=== PATIENT | female | born 1990 | race Caucasian/White ===

== ENCOUNTER 2024-12-27 08:27 | Emergency (ER) | payer MEDICAID, SELFPAY ==
[2024-12-27 08:27] VITALS: BP 131/85; PULSE 84; RESP 14; TEMP 36.3; O2SAT 98; BMI 28.9
[2024-12-27 08:37] VITALS: BP 133/84; PULSE 95; RESP 15; O2SAT 99
--- NOTE | 2024-12-27 08:40 | CT_ITS ---
PROCEDURE: ABDOMEN/PELVIS WITHOUT CONT 12/27/2024 REASON FOR EXAM: POSSIBLE ENLARGED LIVER, ONLY 1 KIDNEY Abdominal bloating. TECHNIQUE: Procedure Code: CTABDPEL Modality: CT Procedure: ABDOMEN/PELVIS WITHOUT CONT Noncontrast technique limits evaluation of the abdominal and pelvic viscera. Coronal and Sagittal reconstruction series were provided. One or more dose reduction techniques were used (e.g., Automated exposure control, adjustment of the mA and/or kV according to patient size, use of iterative reconstruction technique). RADIATION DOSE SUMMARY: CTDlvol: 11.16 mGy DLP: 599.37 mGycm COMPARISON: None FINDINGS: Lung bases: Minimal linear atelectasis at the left lung base. Liver: Normal size. No obvious mass. Gallbladder: Unremarkable. Spleen: Borderline splenomegaly. Pancreas: Normal size. No surrounding inflammation. Adrenals: Unremarkable Kidneys: Solitary right kidney. No evidence of hydronephrosis. No renal calcification is seen. Bladder: Unremarkable Reproductive Organs: Follicles are seen in the right ovary. A left fallopian tube clip is seen. Bowel: Gas pattern. Appendix: Status post cholecystectomy Lymph nodes: Unremarkable. Vasculature: Unremarkable Peritoneum / Retroperitoneum: Unremarkable Bones: Mild degenerative changes. CT/Abdomen/Pelvis without Cont IMPRESSION: Solitary right kidney. Borderline splenomegaly. Follicles are seen in the right ovary. Reading Location: [place] [id number]
--- NOTE | 2024-12-27 08:46 | EX.ED.DYSGE1 ---
HPI History of Present Illness Chief Complaint: Abd Pain Narrative Narrative: Chief complaint and HPI: 34-year-old female with past medical history of kidney donation in 2019, appendectomy presents for evaluation of suspected enlarged spleen. Patient states she has a history of splenomegaly of unknown origin. States she was admitted to the hospital for this in which she had an extensive workup without any etiology. Patient states for the past several days she has been feeling a fullness in the left upper quadrant and is worried that she may have splenomegaly. She denies any fever, chills, URI symptoms, sore throat, excessive fatigue, weight loss, chest pain, shortness of breath, nausea, vomiting, abdominal pain, diarrhea, constipation, rash. Review of systems: See HPI Medications: As listed on the chart Allergies: As listed on the chart PFSH: Per chart Vital signs: As listed on the chart. Reviewed. Physical exam: Gen: A&O x3, NAD Head: Normocephalic, atraumatic Eyes: No sclera icterus, conjunctiva clear ENT: Moist mucous membranes Neck: Full range of motion CV: RRR, no murmurs Resp: Lungs CTA BL, no w/r/c GI: Abd soft, non-distended, non-tender, no palpable hepatosplenomegaly, no r/r/g Musc: Full ROM, no deformity Skin: Warm, dry Neuro: Alert, oriented, grossly intact Psych: Cooperative, appropriate mood and affect [facility] Medical History Spleen enlarged Kidney donor Home Medications Medication Instructions Recorded Last Taken Type NK 12/27/24 Unknown History Allergy/AdvReac Type Severity Reaction Status Date / Time No Known Allergies Allergy Verified 12/27/24 08:28 Surgical History History of appendectomy Social History Smoking Status: Never smoker EXAM Physical Exam Const Vital Signs: 12/27/24 08:27 12/27/24 08:37 12/27/24 10:19 Temperature 97.3 F L Temperature Source Temporal Pulse Rate 84 95 75 Respiratory Rate 14 15 15 Blood Pressure 131/85 H 133/84 H 114/82 H Blood Pressure Mean 100 100 92 Pulse Ox 98 99 98 Oxygen Delivery Method Room Air Room Air Room Air 12/27/24 10:20 Temperature 97.3 F L Temperature Source Pulse Rate 75 Respiratory Rate 15 Blood Pressure 114/82 H Blood Pressure Mean 92 Pulse Ox 98 Oxygen Delivery Method MDM MDM MDM Narrative Medical decision making narrative: 34-year-old female with past medical history of kidney donation in 2020, appendectomy presents for evaluation of suspected enlarged spleen. Patient states she has a history of splenomegaly of unknown origin. States she was admitted to the hospital for this in which she had an extensive workup without any etiology. Patient states for the past several days she has been feeling a fullness in the left upper quadrant and is worried that she may have splenomegaly. On presentation, patient no acute distress. Afebrile. Mildly hypertensive. Differential diagnosis includes but is not limited to splenomegaly, GERD, gastritis, pancreatitis. Laboratory workup ordered including CT abdomen pelvis without contrast given patient only has 1 kidney. CBC without leukocytosis. Patient has mild hemoconcentration of 15.2. Platelets unremarkable. CMP unremarkable except for hyperglycemia with a glucose of 55. Will repeat [id number] glucose. No transaminitis. Lipase unremarkable. Serum negative. [id number] glucose 111. CT abdomen pelvis without contrast shows solitary right kidney, borderline splenomegaly. Follicles are seen in the right ovary. Patient's fullness may be secondary to her borderline splenomegaly. She is asymptomatic otherwise. Follow-up with primary care physician. Patient is able to discharge home. She vermin understanding. Impression: 1. Borderline splenomegaly 2. Mild hemoconcentration Lab Data Labs: Laboratory Results - last 24 hr 12/27/24 12/27/24 12/27/24 08:38 08:45 09:52 WBC 6.4 RBC 5.35 Hgb 15.2 H Hct 45.3 MCV 84.7 MCH 28.4 MCHC 33.6 RDW Std Deviation 36.0 RDW Coeff of Sabina 11.9 Plt Count 263 MPV 10.3 Immature Gran % (Auto) 0.600 Neut % (Auto) 66.3 Lymph % (Auto) 24.4 [place] % (Auto) 6.4 Eos % (Auto) 1.7 Baso % (Auto) 0.6 Absolute Neuts (auto) 4.2 Absolute Lymphs (auto) 1.56 Nucleated RBC % 0 Sodium 140 Potassium 4.0 Chloride 106 Carbon Dioxide 24.9 Anion Gap 9 BUN 19 Creatinine 0.92 Estim Creat Clear Calc 91.76 Est GFR (MDRD) Non-Af 84 BUN/Creatinine Ratio 21.2 H Glucose 55 L Calcium 9.6 Total Bilirubin 0.67 AST 23 ALT 26 Alkaline Phosphatase 60 Total Protein 7.2 Albumin 4.6 Globulin 2.6 Albumin/Globulin Ratio 1.8 Lipase 42 Serum , Qual NEGATIVE POC Glucose 111 H Radiography Diagnostic Testing: Clinical Impression(s) from Imaging Studies Abdomen/Pelvis CT 12/27/24 08:40 IMPRESSION: Solitary right kidney. Borderline splenomegaly. Follicles are seen in the right ovary. Reading Location: [facility] Discharge Plan Triage Chief Complaint: Abd Pain ED Provider: Luis Hugo Dx/Rx/DC Orders Prescriptions: No Action NK Primary Care Provider: Care Physician,No Primary Referrals: Care Physician,No Primary [Primary Care Provider, Medical] Print Language: Argentine
[2024-12-27 08:56] LABS: Hematocrit 45.3 % (37-47); Hemoglobin 15.2 g/dL (12.0-15.0); Immature Granulocytes Count 0.040 X10^3/uL (0.0-0.0); Mean Corp Hgb Conc 33.6 g/dL (32-36); Mean Corpuscular Volume 84.7 fL (81-99); Mean Platelet Vol. 10.3 fl (6.2-12.0); NRBC Flagged by Analyzer 0 % (0-5); Platelet Count 263 K/mm3 (150-450); RBC Distribution Width CV 11.9 % (11.6-14.6); RBC Distribution Width SD 36.0 fl (35.1-43.9); Red Blood Count 5.35 M/mm3 (4.2-5.4); White Blood Count 6.4 K/mm3 (4.4-11.0)
[2024-12-27 09:13] LABS: Internal QC Validated? YES +Cl - CLEAR BKGD; Pregnancy, Serum, hCG Quali. NEGATIVE Negative; Record Kit Lot#, Serum Preg. 0000980607
[2024-12-27 09:35] LABS: AST(SGOT) 23 U/L (<=31); Alanine Aminotransfer ALT/SGPT 26 U/L (<=34); Albumin, Serum 4.6 g/dL (3.5-5.0); Alkaline Phosphatase 60 U/L (35-104); Anion Gap 9 (5-15); BUN 19 mg/dL (4-19); BUN/Creat Ratio 21.2 RATIO (10-20); Calcium,Total 9.6 mg/dL (7.6-11.0); Carbon Dioxide 24.9 mmol/L (21.0-32.0); Chloride 106 mmol/L (98-108); Estimated Creatinine Clearance 91.76 ml/min (50-250); Globulin 2.6 g/dL (2.2-4.2); Glucose 55 mg/dL (70-99); Lipase 42 U/L (13-75); Potassium 4.0 mmol/L (3.3-5.1)
[2024-12-27 10:19] VITALS: BP 114/82; PULSE 75; RESP 15; O2SAT 98
[2024-12-27 10:20] VITALS: BP 114/82; PULSE 75; RESP 15; TEMP 36.3; O2SAT 98
== END 2024-12-27 10:31 | disposition home or self-care (01) ==
PROVIDERS: Emergency Provider Surgery; Visit Provider Surgery
DX: R10.12 Left upper quadrant pain (principal); R16.1 Splenomegaly, not elsewhere classified; Z90.49 Acquired absence of other specified parts of digestive tract; R71.8 Other abnormality of red blood cells; R73.9 Hyperglycemia, unspecified
CPT/HCPCS: 74176; 80053; 82962; 83690; 84703; 85025; 99283; A4216